=== PATIENT | female | born 1990 | race Two or more races ===

== ENCOUNTER 2023-06-20 22:13 | Inpatient (IN) | payer OTHER ==
[~2023-06-20] VITALS: Ht 147.3 cm; Wt 49.9 kg
[2023-06-20] MEDS ORDERED: PRENATAL TABLE1 EAC1 PO (22:15)
[2023-06-20 23:28] LABS: HEMATOCRIT 34.4 % (36.0-45.00); HEMOGLOBIN 11.6 g/dL (12.0-15.00); MEAN CORPUSCULAR HEMOGLOBIN 30.8 pg (27.00-32.0); MEAN CORPUSCULAR HGB CONC 33.8 g/dl (32.0-36.0); PLATELET COUNT 189 K/uL (150-450); RED BLOOD COUNT 3.78 M/uL (4.00-6.00); RED CELL DISTRIBUTION WIDTH 15.3 % (11.5-14.5)
[2023-06-20 23:30] LABS: PH,URINE 7.5 (5.0-8.0); URINE APPEARANCE Cloudy; URINE BILIRRUBIN Negative (NEGATIVE); URINE BLOOD Large; URINE COLOR Yellow; URINE GLUCOSE Negative (NEGATIVE); URINE LEUKOCYTE Small; URINE NITRATE Negative; URINE PROTEIN Trace (NEGATIVE); URINE UROBILINOGEN 0.2 E.U./dl
[2023-06-20 23:34] LABS: URINE BACTERIA 2610.6 uL (0.0-1933); URINE EPITHELIAL CELLS 130.6 uL (0.0-38.8); URINE WBC 159.3 uL (0.0-23.2)
[2023-06-21 08:00] LABS: INR < 0.93; PARTIAL THROMBOPLASTIN TIME 25.6 SECONDS (22.0-34.0); PROTHROMBIN TIME 9.2 SECONDS (9.0-11.5)
[2023-06-21 10:01] LABS: ABG PH 7.338 (7.35-7.45); ABG pCO2 40.1 mmHg (35-45); BASE EXCESS -4.4 mmol/l; SaO2 69.5 %; Tco2 22.3 mmol/l
[2023-06-21 10:40] LABS: ABG PO2 39.5 mmHg (80-100); o2 21 %
[2023-06-21 13:18] LABS: HEMATOCRIT 32.1 % (36.0-45.00); MEAN CELL VOLUME 91.8 fL (80.00-100.00); MEAN CORPUSCULAR HGB CONC 32.3 g/dl (32.0-36.0); PLATELET COUNT 179 K/uL (150-450); RED BLOOD COUNT 3.49 M/uL (4.00-6.00); RED CELL DISTRIBUTION WIDTH 15.1 % (11.5-14.5)
[2023-06-21 13:21] LABS: HEMOGLOBIN 10.4 g/dL (12.0-15.00); MEAN CORPUSCULAR HEMOGLOBIN 29.7 pg (27.00-32.0)
[2023-06-22] MEDS ORDERED: RHOGAM ULTR1500 UNIT IM (08:12)
[2023-06-24] MEDS ORDERED: IBUPROFEN800 MG PO (08:14)
== END 2023-06-24 13:59 | disposition home or self-care (01) | DRG 785 ==
LOC: OB/GYN 22:13 → LDR 22:13 → OB/GYN 06-21 09:38
PROVIDERS: Obstetrics & Gynecology; ADMIT Specialist; ATTEND Specialist
PROC: 4A1HXCZ Monitoring of Products of Conception, Cardiac Rate, External Approach (ICD-10-PCS; 2023-06-20)
PROC: 0UB70ZZ Excision of Bilateral Fallopian Tubes, Open Approach (ICD-10-PCS; 2023-06-21)
PROC: 10D00Z1 Extraction of Products of Conception, Low, Open Approach (ICD-10-PCS; principal; 2023-06-21 08:15)
DX: O62.0 Primary inadequate contractions (principal); Z3A.38 38 weeks gestation of pregnancy; Z37.0 Single live birth; Z20.822 Contact with and (suspected) exposure to COVID-19; Z30.2 Encounter for sterilization